=== PATIENT | female | born 1940 | race American Indian/Alaskan Native ===

== ENCOUNTER 2017-06-11 12:56 | Emergency (ER) | payer MEDICARE ==
--- NOTE | 2017-06-11 13:23 | Emergency Department Report ---
Stated Complaint: BOTH LEGS SWOLLEN AND RED Time Seen by Provider: 06/11/17 13:20 - HPI History of Present Illness: PT c/o ulcers to legs x 2 years. PT states they had healed up but two weeks ago they opened up. PT reports redness and swelling to ble. - ROS Review of Systems: - fever/ chills + ble draining clear fluid - Exam Physical Exam: obese female ble with gauze dressings. + swelling noted MSE screening note: Focused history and physical exam performed. Due to findings the following was ordered: labs ED Disposition for MSE Condition: Stable
[2017-06-11 14:14] LABS: Alanine Aminotransferase 8 units/L (7-56); Albumin 3.5 g/dL (3.9-5); Alkaline Phosphatase 126 units/L (35-129); Anion Gap 18 mmol/L; BUN/Creatinine Ratio 29; Blood Urea Nitrogen 26 mg/dL (7-17); Calcium 9.1 mg/dL (8.4-10.2); Carbon Dioxide 21 mmol/L (22-30); Chloride 110.5 mmol/L (98-107); Glucose 138 mg/dL (65-100); Potassium 4.2 mmol/L (3.6-5.0); Sodium 145 mmol/L (137-145); Total Protein 6.9 g/dL (6.3-8.2)
[2017-06-11 15:44] LABS: Hematocrit 30.9 % (30.3-42.9); Hemoglobin 10.2 gm/dl (10.1-14.3); Mean Corpuscular HGB Conc 33 % (30-34); Mean Corpuscular Hemoglobin 30 pg (28-32); Mean Corpuscular Volume 90 fl (79-97); Platelet Count 203 K/mm3 (140-440); Red Blood Count 3.45 M/mm3 (3.65-5.03); Red Cell Distribution Width 14.6 % (13.2-15.2); White Blood Count 5.9 K/mm3 (4.5-11.0)
[2017-06-11 17:10] LABS: Basophils % (Manual) 0 % (0.0-1.8); Blastocytes % (Manual) 0 %; RBC Morphology Normal
[2017-06-11 17:11] LABS: Diff Status Complete; Platelet Estimate Consistent w Auto
--- NOTE | 2017-06-11 17:39 | Emergency Department Report ---
ED General Adult HPI - General Chief complaint: Extremity Problem,Nontraumatic Stated complaint: BOTH LEGS SWOLLEN AND RED Time Seen by Provider: 06/11/17 13:20 Source: patient Mode of arrival: Ambulatory Limitations: No Limitations - History of Present Illness Initial comments: This is a 77-year-old female who was previously unknown to this provider. Past medical history includes arthritis, asthma, colon cancer, COPD, chronic venous stasis ulcers, lymphedema, chronic lower extremity wounds. The patient presents to the ER with a complaint of bilateral lower extremity pain which has been present for the past few days. No fevers or chills. No chest pain or shortness of breath. No redness, pus or streaking. Patient reports that she was recently in [place], is currently dressing the wounds on her own. She denies hematemesis and bright red blood per rectum. She thinks her legs are swollen at baseline, and the swelling is not new, worsening or different. The swelling is constant, and doesn't have any exacerbating or relieving factors. The pain is achy, and increases with palpation and range of motion. -: Gradual Location: left, right, lower extremity Quality: aching Consistency: constant Improves with: rest Worsens with: movement Associated Symptoms: denies other symptoms - Related Data Previous Rx's Medication Instructions Recorded Last Taken Type Bacitracin Zinc Oint [Antibiotic 28.4 gm TP TID #1 oint...g. 06/11/17 Unknown Rx Oint] Allergies Allergy/AdvReac Type Severity Reaction Status Date / Time aspirin Allergy Unknown Verified 06/11/17 13:25 ED Review of Systems ROS: Stated complaint: BOTH LEGS SWOLLEN AND RED Other details as noted in HPI Constitutional: denies: fever, malaise Eyes: denies: vision change Respiratory: denies: cough, shortness of breath Cardiovascular: denies: chest pain Gastrointestinal: denies: abdominal pain, melena, hematochezia Genitourinary: denies: dysuria Skin: lesions Neurological: weakness (chronic) ED Past Medical Hx - Past Medical History Previous Medical History?: Yes Hx Hypertension: Yes Hx of Cancer: Yes Hx Arthritis: Yes Hx Asthma: Yes Hx COPD: Yes Additional medical history: stasis ulcer to lower ext,chronic - Surgical History Past Surgical History?: Yes Additional Surgical History: colon cancer - Social History Smoking Status: Never Smoker Substance Use Type: None - Medications Home Medications: Home Medications Medication Instructions Recorded Confirmed Last Taken Type Bacitracin Zinc Oint [Antibiotic 28.4 gm TP TID #1 oint...g. 06/11/17 Unknown Rx Oint] ED Physical Exam - General Limitations: No Limitations General appearance: alert, in no apparent distress - Head Head exam: Present: atraumatic, normocephalic - Eye Eye exam: Present: normal appearance, EOMI. Absent: nystagmus - ENT ENT exam: Present: normal exam, normal orophraynx, mucous membranes moist, normal external ear exam - Neck Neck exam: Present: normal inspection, full ROM. Absent: tenderness, meningismus - Respiratory Respiratory exam: Present: normal lung sounds bilaterally. Absent: respiratory distress, wheezes, rales, chest wall tenderness - Cardiovascular Cardiovascular Exam: Present: regular rate, normal rhythm, normal heart sounds, other (2+ pulses are noted in the bilateral upper and lower extremities). Absent: bradycardia, tachycardia, irregular rhythm, systolic murmur, diastolic murmur, rubs, gallop - GI/Abdominal GI/Abdominal exam: Present: soft, normal bowel sounds. Absent: distended, tenderness, guarding, rebound, rigid, pulsatile mass - Extremities Exam Extremities exam: Present: full ROM, tenderness, normal capillary refill, pedal edema, other (there is 2+ pitting edema in the bilateral lower extremities. There is some hyperpigmentation to the bilateral lower extremities, but there is no redness, pus, crepitus, streaking or discharge. Chronic appearing lesions appear in the bilateral lower extremities, with appropriate granulation tissue. Some stasis dermatitis changes are noted.). Absent: calf tenderness - Back Exam Back exam: Present: normal inspection, full ROM. Absent: CVA tenderness (L), muscle spasm, paraspinal tenderness, vertebral tenderness - Neurological Exam Neurological exam: Present: alert, oriented X3, other (Extraocular movements intact. Tongue midline. No facial droop. Facial sensation intact to light touch in the V1, V2, V3 distribution bilaterally. 5 and 5 strength in 4 extremities.. Sensation is intact to light touch in 4 extremities.). Absent: motor sensory deficit - Psychiatric Psychiatric exam: Present: normal affect, normal mood - Skin Skin exam: Present: warm, rash ED Course Vital Signs 06/11/17 06/11/17 06/11/17 13:16 18:02 18:24 Temperature 98 F 98.4 F 98.4 F Pulse Rate 65 60 60 Respiratory 20 20 Rate Blood Pressure 147/59 Blood Pressure 191/71 187/74 [Left] O2 Sat by Pulse 98 96 99 Oximetry ED Medical Decision Making - Lab Data Result diagrams: 06/11/17 15:04 06/11/17 13:28 Vital Signs 06/11/17 13:16 Temperature 98 F Pulse Rate 65 Respiratory 20 Rate Blood Pressure 147/59 O2 Sat by Pulse 98 Oximetry Lab Results 06/11/17 06/11/17 Range/Units 13:28 15:04 WBC 5.9 (4.5-11.0) K/mm3 RBC 3.45 L (3.65-5.03) M/mm3 Hgb 10.2 (10.1-14.3) gm/dl Hct 30.9 (30.3-42.9) % MCV 90 (79-97) fl MCH 30 (28-32) pg MCHC 33 (30-34) % RDW 14.6 (13.2-15.2) % Plt Count 203 (140-440) K/mm3 Baso % (Auto) [place] Add Manual Diff Complete Total Counted 100 Seg Neuts % (Manual) 57.0 (40.0-70.0) % Band Neutrophils % 0 % Lymphocytes % (Manual) 29.0 (13.4-35.0) % Reactive Lymphs % (Man) 0 % Monocytes % (Manual) 13.0 H (0.0-7.3) % Eosinophils % (Manual) 1.0 (0.0-4.3) % Basophils % (Manual) 0 (0.0-1.8) % Metamyelocytes % 0 % Myelocytes % 0 % Promyelocytes % 0 % Blast Cells % 0 % Nucleated RBC % Not Reportable Seg Neutrophils # Man 3.4 (1.8-7.7) K/mm3 Band Neutrophils # 0.0 K/mm3 Lymphocytes # (Manual) 1.7 (1.2-5.4) K/mm3 Abs React Lymphs (Man) 0.0 K/mm3 Monocytes # (Manual) 0.8 (0.0-0.8) K/mm3 Eosinophils # (Manual) 0.1 (0.0-0.4) K/mm3 Basophils # (Manual) 0.0 (0.0-0.1) K/mm3 Metamyelocytes # 0.0 K/mm3 Myelocytes # 0.0 K/mm3 Promyelocytes # 0.0 K/mm3 Blast Cells # 0.0 K/mm3 WBC Morphology Not Reportable Hypersegmented Neuts Not Reportable Hyposegmented Neuts Not Reportable Hypogranular Neuts Not Reportable Smudge Cells Not Reportable Toxic Granulation Not Reportable Toxic Vacuolation Not Reportable Dohle Bodies Not Reportable Pelger-Huet Anomaly Not Reportable Darin Rods Not Reportable Platelet Estimate Consistent w auto Clumped Platelets Not Reportable Plt Clumps, EDTA Not Reportable Large Platelets Not Reportable Giant Platelets Not Reportable Platelet Satelliting Not Reportable Plt Morphology Comment Not Reportable RBC Morphology Normal Dimorphic RBCs Not Reportable Polychromasia Not Reportable Hypochromasia Not Reportable Poikilocytosis Not Reportable Anisocytosis Not Reportable Microcytosis Not Reportable Macrocytosis Not Reportable Spherocytes Not Reportable Pappenheimer Bodies Not Reportable Sickle Cells Not Reportable Target Cells Not Reportable Tear Drop Cells Not Reportable Ovalocytes Not Reportable Helmet Cells Not Reportable Garcia-[place] Bodies Not Reportable [place] Rings Not Reportable [place] Cells Not Reportable Bite Cells Not Reportable Crenated Cell Not Reportable Elliptocytes Not Reportable Acanthocytes (Spur) Not Reportable Rouleaux Not Reportable Hemoglobin C Crystals Not Reportable Schistocytes Not Reportable Malaria parasites Not Reportable Fritz Bodies Not Reportable Hem Pathologist Commnt No Sodium 145 (137-145) mmol/L Potassium 4.2 (3.6-5.0) mmol/L Chloride 110.5 H (98-107) mmol/L Carbon Dioxide 21 L (22-30) mmol/L Anion Gap 18 mmol/L BUN 26 H (7-17) mg/dL Creatinine 0.9 (0.7-1.2) mg/dL Estimated GFR > 60 ml/min BUN/Creatinine Ratio 29 % Glucose 138 H (65-100) mg/dL Calcium 9.1 (8.4-10.2) mg/dL Total Bilirubin 0.30 (0.1-1.2) mg/dL AST 13 (5-40) units/L ALT 8 (7-56) units/L Alkaline Phosphatase 126 (35-129) units/L Total Protein 6.9 (6.3-8.2) g/dL Albumin 3.5 L (3.9-5) g/dL Albumin/Globulin Ratio 1.0 % - Medical Decision Making Differential diagnosis: Chronic wounds, chronic lymphedema, venous stasis ulcers , mild stasis dermatitis, DVT Assessment and plan: 77-year-old female with chronic ulcerations, chronic stasis , no obvious redness, pus, streaking, no systemic signs of toxicity, clinically appears well. Lesions appear to be chronic, they do not appear to be superinfected. Patient does not require admission to the hospital or oral or systemic antibiotics at this time. She is to follow up with outpatient wound care, she is given instructions on how to provide wound care, and she is referred to the outpatient wound center. Highly doubt DVT, currently the vascular lab is not present, therefore this provider will order outpatient DVT study to be performed. Given that patient is so elderly, walks with a walker, high fall risk, not having chest pain, not having shortness of breath, will withhold systemic anticoagulation at this time , as risks outweigh benefits. Patient understands the need to follow up with outpatient wound center, outpatient primary care doctor. Return precautions are reviewed. Critical care attestation.: If time is entered above; I have spent that time in minutes in the direct care of this critically ill patient, excluding procedure time. ED Disposition Clinical Impression: Lower extremity ulceration Qualifiers: Laterality: unspecified laterality Non-pressure ulcer stage: limited to breakdown of skin Qualified Code(s): L97.901 - Non-pressure chronic ulcer of unspecified part of unspecified lower leg limited to breakdown of skin Disposition: DC-01 TO HOME OR SELFCARE Is pt being admited?: No Does the pt Need Aspirin: No Condition: Stable Instructions: Leg Edema (ED), Lymphedema (ED) Additional Instructions: Wash the lower extremity wounds with gentle soap and water at least once per day. Apply nonstick Telfa gauze to the wounds, after application of antibiotic ointment. Follow up with the wound care center within the next week. Continue outpatient medications, and follow up with her primary care doctor within the next month. Outpatient ultrasound has been ordered of the lower extremities, contact [phone], bring the requisition form with the patient, and follow- up for ultrasound within the next 48 hours. Return to the ER right away with new pain, worsened pain, migration of pain, fevers, chills, lethargy, irritability, projectile vomiting, change in mental status, inability to tolerate liquid feeds. Prescriptions: Bacitracin Zinc Oint [Antibiotic Oint] 28.4 gm TP TID #1 oint...g. Referrals: ELAN KWOK JR, MD [Primary Care Provider] - 3-5 Days [facility] [Outside] - 3-5 Days
[2017-06-11] MEDS ORDERED: TYLENOL PO ONE (18:00)
[2017-06-11] MEDS ORDERED: TYLENOL ONE (18:04)
[2017-06-11 18:25] VITALS: BP 187/74
== END 2017-06-11 18:25 | disposition home or self-care (01) ==
LOC: ED 12:56
DX: L97.901 Non-pressure chronic ulcer of unspecified part of unspecified lower leg limited to breakdown of skin (principal); I10 Essential (primary) hypertension; J45.909 Unspecified asthma, uncomplicated; J44.9 Chronic obstructive pulmonary disease, unspecified
CPT/HCPCS: 36415; 80053; 85007; 85025

== ENCOUNTER 2017-06-19 08:48 | Outpatient (CLI) | payer MEDICARE ==
--- NOTE | 2017-06-21 07:03 | Vascular Lab Report ---
LOWER EXTREMITY VENOUS DUPLEX: REASON FOR EXAM: Swelling of the lower extremities. COMMENTS ON THE RIGHT: All veins visualized are freely compressible without evidence of internal echogenicity. Flow is spontaneous and phasic throughout. COMMENTS ON THE LEFT: All veins visualized are freely compressible without evidence of internal echogenicity. Flow is spontaneous and phasic throughout. IMPRESSION: No evidence of acute or chronic deep venous thrombosis in either lower extremity.
== END 2017-06-19 08:49 | disposition home or self-care (01) ==
LOC: VAS 08:48
PROVIDERS: ATTEND Emergency Medicine
DX: M79.661 Pain in right lower leg (principal); M79.662 Pain in left lower leg; M79.89 Other specified soft tissue disorders
CPT/HCPCS: 93970

== ENCOUNTER 2017-07-22 09:31 | Outpatient (CLI) | payer MEDICARE ==
[2017-07-22] MEDS ORDERED: XYLOCAINE TOPICAL 2% TP ONE ×2 (10:02→10:20)
[2017-07-22] MEDS ORDERED: XYLOCAINE TOPICAL 4% TP ONE ×2 (10:02→10:20)
== END 2017-07-22 09:32 | disposition home or self-care (01) ==
LOC: WOUND 09:31
PROVIDERS: ATTEND Internal Medicine
DX: I87.2 Venous insufficiency (chronic) (peripheral) (principal); L97.821 Non-pressure chronic ulcer of other part of left lower leg limited to breakdown of skin; L97.811 Non-pressure chronic ulcer of other part of right lower leg limited to breakdown of skin; E66.01 Morbid (severe) obesity due to excess calories; M19.90 Unspecified osteoarthritis, unspecified site; D50.8 Other iron deficiency anemias; J45.909 Unspecified asthma, uncomplicated; I10 Essential (primary) hypertension; Z85.038 Personal history of other malignant neoplasm of large intestine
CPT/HCPCS: 11042; G0463

== ENCOUNTER 2017-07-29 09:53 | Outpatient (CLI) | payer MEDICARE ==
[2017-07-29] MEDS ORDERED: XYLOCAINE TOPICAL 4% TP ONE (11:05)
== END 2017-07-29 09:54 | disposition home or self-care (01) ==
LOC: WOUND 09:53
PROVIDERS: ATTEND Internal Medicine
DX: I87.313 Chronic venous hypertension (idiopathic) with ulcer of bilateral lower extremity (principal); L97.821 Non-pressure chronic ulcer of other part of left lower leg limited to breakdown of skin; L97.811 Non-pressure chronic ulcer of other part of right lower leg limited to breakdown of skin; D50.8 Other iron deficiency anemias; M19.90 Unspecified osteoarthritis, unspecified site; E66.01 Morbid (severe) obesity due to excess calories; J45.909 Unspecified asthma, uncomplicated; Z68.41 Body mass index [BMI] 40.0-44.9, adult; Z85.038 Personal history of other malignant neoplasm of large intestine
CPT/HCPCS: 29581

== ENCOUNTER 2017-08-05 09:39 | Outpatient (CLI) | payer MEDICARE ==
[2017-08-05] MEDS ORDERED: XYLOCAINE TOPICAL 4% TP ONE (10:00)
== END 2017-08-05 09:40 | disposition home or self-care (01) ==
LOC: WOUND 09:39
PROVIDERS: ATTEND Internal Medicine
DX: I87.2 Venous insufficiency (chronic) (peripheral) (principal); L97.811 Non-pressure chronic ulcer of other part of right lower leg limited to breakdown of skin; L97.821 Non-pressure chronic ulcer of other part of left lower leg limited to breakdown of skin; M19.90 Unspecified osteoarthritis, unspecified site; J45.909 Unspecified asthma, uncomplicated; E66.01 Morbid (severe) obesity due to excess calories; D50.8 Other iron deficiency anemias; Z68.41 Body mass index [BMI] 40.0-44.9, adult; Z85.038 Personal history of other malignant neoplasm of large intestine; Z98.49 Cataract extraction status, unspecified eye

== ENCOUNTER 2017-08-12 09:45 | Outpatient (CLI) | payer MEDICARE ==
[2017-08-12] MEDS ORDERED: XYLOCAINE TOPICAL 4% TP ONE ×3 (10:30→11:15)
== END 2017-08-12 09:46 | disposition home or self-care (01) ==
LOC: WOUND 09:45
PROVIDERS: ATTEND Surgery
DX: I87.2 Venous insufficiency (chronic) (peripheral) (principal); L97.821 Non-pressure chronic ulcer of other part of left lower leg limited to breakdown of skin; L97.811 Non-pressure chronic ulcer of other part of right lower leg limited to breakdown of skin; I10 Essential (primary) hypertension; M19.90 Unspecified osteoarthritis, unspecified site; Z85.038 Personal history of other malignant neoplasm of large intestine; J45.909 Unspecified asthma, uncomplicated; Z98.49 Cataract extraction status, unspecified eye; D50.8 Other iron deficiency anemias

== ENCOUNTER 2017-08-19 09:43 | Outpatient (CLI) | payer MEDICARE ==
[2017-08-19] MEDS ORDERED: XYLOCAINE TOPICAL 4% TP ONE ×2 (10:29)
== END 2017-08-19 09:44 | disposition home or self-care (01) ==
LOC: WOUND 09:43
PROVIDERS: ATTEND Internal Medicine
DX: I87.2 Venous insufficiency (chronic) (peripheral) (principal); L97.821 Non-pressure chronic ulcer of other part of left lower leg limited to breakdown of skin; L97.811 Non-pressure chronic ulcer of other part of right lower leg limited to breakdown of skin; D50.8 Other iron deficiency anemias; M19.90 Unspecified osteoarthritis, unspecified site; E66.01 Morbid (severe) obesity due to excess calories; I10 Essential (primary) hypertension; J45.909 Unspecified asthma, uncomplicated; Z85.038 Personal history of other malignant neoplasm of large intestine; Z98.49 Cataract extraction status, unspecified eye; Z68.41 Body mass index [BMI] 40.0-44.9, adult

== ENCOUNTER 2017-08-26 09:44 | Outpatient (CLI) | payer MEDICARE ==
[2017-08-26] MEDS ORDERED: XYLOCAINE TOPICAL 4% TP ONE (11:00)
== END 2017-08-26 09:45 | disposition home or self-care (01) ==
LOC: WOUND 09:44
PROVIDERS: ATTEND Internal Medicine
DX: I87.2 Venous insufficiency (chronic) (peripheral) (principal); L97.821 Non-pressure chronic ulcer of other part of left lower leg limited to breakdown of skin; L97.811 Non-pressure chronic ulcer of other part of right lower leg limited to breakdown of skin; E66.01 Morbid (severe) obesity due to excess calories; M19.90 Unspecified osteoarthritis, unspecified site; I10 Essential (primary) hypertension; J45.909 Unspecified asthma, uncomplicated; Z86.718 Personal history of other venous thrombosis and embolism; Z68.41 Body mass index [BMI] 40.0-44.9, adult; Z90.49 Acquired absence of other specified parts of digestive tract; Z98.49 Cataract extraction status, unspecified eye; Z85.038 Personal history of other malignant neoplasm of large intestine

== ENCOUNTER 2017-09-05 09:53 | Outpatient (CLI) | payer MEDICARE ==
[2017-09-05] MEDS ORDERED: XYLOCAINE TOPICAL 4% TP ONE (10:58)
[2017-09-06] MEDS ORDERED: NACL 0.9% 500 ML 0 ML ONE (13:12)
[2017-09-06] MEDS ORDERED: SUBLIMAZE ONE (13:12)
[2017-09-06] MEDS ORDERED: VERSED ONE (13:12)
[2017-09-06] MEDS ORDERED: HEPARIN 10,000 UNITS/10 ML ONE (13:13)
[2017-09-06] MEDS ORDERED: NACL 0.9% 1000 ML 1,000 ML ONE (13:13)
[2017-09-06] MEDS ORDERED: NITROGLYCERIN SYRINGE 3 ML ONE (13:14)
[2017-09-06] MEDS ORDERED: HEPARIN/NS 5000 UNIT/500ML(CATH LAB) 1,000 ML IR ONE (13:16)
[2017-09-06] MEDS ORDERED: XYLOCAINE 2% INFILTRATI ONE (13:16)
== END 2017-09-05 09:54 | disposition home or self-care (01) ==
LOC: WOUND 09:53
PROVIDERS: ATTEND Nurse Practitioner
DX: I87.2 Venous insufficiency (chronic) (peripheral) (principal); L97.821 Non-pressure chronic ulcer of other part of left lower leg limited to breakdown of skin; L97.811 Non-pressure chronic ulcer of other part of right lower leg limited to breakdown of skin; I10 Essential (primary) hypertension; M19.90 Unspecified osteoarthritis, unspecified site; E66.01 Morbid (severe) obesity due to excess calories; J45.909 Unspecified asthma, uncomplicated; Z68.41 Body mass index [BMI] 40.0-44.9, adult; Z86.718 Personal history of other venous thrombosis and embolism; Z90.49 Acquired absence of other specified parts of digestive tract; Z98.49 Cataract extraction status, unspecified eye; Z85.038 Personal history of other malignant neoplasm of large intestine
CPT/HCPCS: J1644; J2250; J3010; J7030; J7040

== ENCOUNTER 2017-09-16 09:53 | Outpatient (CLI) | payer MEDICARE ==
[2017-09-16] MEDS ORDERED: XYLOCAINE TOPICAL 2% 5ML ONE (10:25)
[2017-09-16] MEDS ORDERED: XYLOCAINE TOPICAL 2% 5ML TP ONE (11:32)
== END 2017-09-16 09:54 | disposition home or self-care (01) ==
LOC: WOUND 09:53
PROVIDERS: ATTEND Internal Medicine
DX: I87.2 Venous insufficiency (chronic) (peripheral) (principal); L97.821 Non-pressure chronic ulcer of other part of left lower leg limited to breakdown of skin; L97.811 Non-pressure chronic ulcer of other part of right lower leg limited to breakdown of skin; I10 Essential (primary) hypertension; M19.90 Unspecified osteoarthritis, unspecified site; E66.01 Morbid (severe) obesity due to excess calories; J45.909 Unspecified asthma, uncomplicated; Z68.41 Body mass index [BMI] 40.0-44.9, adult; Z85.038 Personal history of other malignant neoplasm of large intestine; Z90.49 Acquired absence of other specified parts of digestive tract; Z98.49 Cataract extraction status, unspecified eye

== ENCOUNTER 2017-09-23 09:26 | Outpatient (CLI) | payer MEDICARE ==
[2017-09-23] MEDS ORDERED: XYLOCAINE TOPICAL 4% TP ONE (09:55)
== END 2017-09-23 09:27 | disposition home or self-care (01) ==
LOC: WOUND 09:26
PROVIDERS: ATTEND Internal Medicine
DX: I87.2 Venous insufficiency (chronic) (peripheral) (principal); I87.013 Postthrombotic syndrome with ulcer of bilateral lower extremity; L97.811 Non-pressure chronic ulcer of other part of right lower leg limited to breakdown of skin; L97.821 Non-pressure chronic ulcer of other part of left lower leg limited to breakdown of skin; D50.8 Other iron deficiency anemias; M19.90 Unspecified osteoarthritis, unspecified site; E66.01 Morbid (severe) obesity due to excess calories; I10 Essential (primary) hypertension; J45.909 Unspecified asthma, uncomplicated; Z85.038 Personal history of other malignant neoplasm of large intestine

== ENCOUNTER 2017-09-30 09:59 | Outpatient (CLI) | payer MEDICARE ==
[2017-09-30] MEDS ORDERED: XYLOCAINE TOPICAL 4% TP ONE ×2 (10:06→10:31)
== END 2017-09-30 10:00 | disposition home or self-care (01) ==
LOC: WOUND 09:59
PROVIDERS: ATTEND Internal Medicine
DX: I87.2 Venous insufficiency (chronic) (peripheral) (principal); I87.013 Postthrombotic syndrome with ulcer of bilateral lower extremity; L97.811 Non-pressure chronic ulcer of other part of right lower leg limited to breakdown of skin; L97.821 Non-pressure chronic ulcer of other part of left lower leg limited to breakdown of skin; D50.8 Other iron deficiency anemias; M19.90 Unspecified osteoarthritis, unspecified site; E66.01 Morbid (severe) obesity due to excess calories; I10 Essential (primary) hypertension; J45.909 Unspecified asthma, uncomplicated; Z85.038 Personal history of other malignant neoplasm of large intestine; Z68.41 Body mass index [BMI] 40.0-44.9, adult

== ENCOUNTER 2017-10-07 09:48 | Outpatient (CLI) | payer MEDICARE ==
[2017-10-07] MEDS ORDERED: XYLOCAINE TOPICAL 4% TP ONE ×2 (10:08→10:17)
== END 2017-10-07 09:49 | disposition home or self-care (01) ==
LOC: WOUND 09:48
PROVIDERS: ATTEND Internal Medicine
DX: I87.2 Venous insufficiency (chronic) (peripheral) (principal); L97.811 Non-pressure chronic ulcer of other part of right lower leg limited to breakdown of skin; L97.821 Non-pressure chronic ulcer of other part of left lower leg limited to breakdown of skin; I87.013 Postthrombotic syndrome with ulcer of bilateral lower extremity; M19.90 Unspecified osteoarthritis, unspecified site; E66.01 Morbid (severe) obesity due to excess calories; I10 Essential (primary) hypertension; J45.909 Unspecified asthma, uncomplicated; Z85.038 Personal history of other malignant neoplasm of large intestine

== ENCOUNTER 2017-10-14 09:39 | Outpatient (CLI) | payer MEDICARE ==
[2017-10-14] MEDS ORDERED: XYLOCAINE TOPICAL 4% TP ONE (10:24)
== END 2017-10-14 09:40 | disposition home or self-care (01) ==
LOC: WOUND 09:39
PROVIDERS: ATTEND Internal Medicine
DX: I87.2 Venous insufficiency (chronic) (peripheral) (principal); L97.821 Non-pressure chronic ulcer of other part of left lower leg limited to breakdown of skin; L97.811 Non-pressure chronic ulcer of other part of right lower leg limited to breakdown of skin; I10 Essential (primary) hypertension; D50.8 Other iron deficiency anemias; M19.90 Unspecified osteoarthritis, unspecified site; I87.013 Postthrombotic syndrome with ulcer of bilateral lower extremity; E66.01 Morbid (severe) obesity due to excess calories; J45.909 Unspecified asthma, uncomplicated; Z85.41 Personal history of malignant neoplasm of cervix uteri; Z68.41 Body mass index [BMI] 40.0-44.9, adult

== ENCOUNTER 2017-10-21 09:38 | Outpatient (CLI) | payer MEDICARE ==
[2017-10-21] MEDS ORDERED: XYLOCAINE TOPICAL 4% TP ONE ×2 (09:44→09:52)
== END 2017-10-21 09:39 | disposition home or self-care (01) ==
LOC: WOUND 09:38
PROVIDERS: ATTEND Internal Medicine
DX: I87.2 Venous insufficiency (chronic) (peripheral) (principal); L97.811 Non-pressure chronic ulcer of other part of right lower leg limited to breakdown of skin; M19.90 Unspecified osteoarthritis, unspecified site; I10 Essential (primary) hypertension; D50.8 Other iron deficiency anemias; E66.01 Morbid (severe) obesity due to excess calories; Z68.41 Body mass index [BMI] 40.0-44.9, adult; Z85.038 Personal history of other malignant neoplasm of large intestine; Z98.49 Cataract extraction status, unspecified eye
CPT/HCPCS: 29580

== ENCOUNTER 2017-10-28 09:20 | Outpatient (CLI) | payer MEDICARE ==
[2017-10-28] MEDS ORDERED: XYLOCAINE TOPICAL 4% TP ONE (09:43)
== END 2017-10-28 09:21 | disposition home or self-care (01) ==
LOC: WOUND 09:20
PROVIDERS: ATTEND Internal Medicine
DX: I87.2 Venous insufficiency (chronic) (peripheral) (principal); L97.811 Non-pressure chronic ulcer of other part of right lower leg limited to breakdown of skin; E66.01 Morbid (severe) obesity due to excess calories; M19.90 Unspecified osteoarthritis, unspecified site; J45.909 Unspecified asthma, uncomplicated; D50.8 Other iron deficiency anemias; I10 Essential (primary) hypertension; Z85.038 Personal history of other malignant neoplasm of large intestine; Z68.41 Body mass index [BMI] 40.0-44.9, adult; Z98.49 Cataract extraction status, unspecified eye
CPT/HCPCS: 29580

== ENCOUNTER 2017-11-04 09:49 | Outpatient (CLI) | payer MEDICARE ==
[2017-11-04] MEDS ORDERED: XYLOCAINE TOPICAL 4% TP ONE ×2 (10:10→10:18)
== END 2017-11-04 09:50 | disposition home or self-care (01) ==
LOC: WOUND 09:49
PROVIDERS: ATTEND Internal Medicine
DX: L97.811 Non-pressure chronic ulcer of other part of right lower leg limited to breakdown of skin (principal); M19.90 Unspecified osteoarthritis, unspecified site; I10 Essential (primary) hypertension; D50.8 Other iron deficiency anemias; E66.01 Morbid (severe) obesity due to excess calories; Z68.41 Body mass index [BMI] 40.0-44.9, adult; Z85.038 Personal history of other malignant neoplasm of large intestine; Z98.49 Cataract extraction status, unspecified eye
CPT/HCPCS: 29580

== ENCOUNTER 2017-11-11 09:38 | Outpatient (CLI) | payer MEDICARE | END 2017-11-11 09:39 | disposition home or self-care (01) | LOC: WOUND 09:38 | PROVIDERS: ATTEND Internal Medicine | DX: L97.811 Non-pressure chronic ulcer of other part of right lower leg limited to breakdown of skin (principal); I87.2 Venous insufficiency (chronic) (peripheral); D50.8 Other iron deficiency anemias; E66.01 Morbid (severe) obesity due to excess calories; M19.90 Unspecified osteoarthritis, unspecified site; J45.909 Unspecified asthma, uncomplicated; I10 Essential (primary) hypertension; Z68.41 Body mass index [BMI] 40.0-44.9, adult; Z85.038 Personal history of other malignant neoplasm of large intestine; Z98.49 Cataract extraction status, unspecified eye | CPT/HCPCS: 99213; G0463 ==

== ENCOUNTER 2018-07-01 10:06 | Outpatient (CLI) | payer MEDICARE ==
--- NOTE | 2018-07-01 13:00 | XRay Report ---
XRAY LEFT SHOULDER THREE VIEWS: 07/01/18 10:06:00 CLINICAL: Shoulder pain. FINDINGS: No fracture or dislocation. Severe osteoarthritis of the glenohumeral joint with complete loss of the inferior joint space, large superior and inferior osteophytes and geodes of the glenoid and humeral head. Normal acromioclavicular joint. Normal soft tissues. No bursal calcifications. IMPRESSION: Severe osteoarthritis of the glenohumeral joint.
--- NOTE | 2018-07-01 16:47 | XRay Report ---
XRAY BILATERAL KNEE THREE VIEWS EACH: 07/01/18 10:06:00 CLINICAL: Bilateral knee pain. FINDINGS: Right: Severe osteoarthritis with loss of both medial and lateral joint spaces with large osteophytes. Slight medial subluxation of the femur on the tibia. Patellofemoral joint osteoarthritis. No fracture or dislocation. No joint effusion. Normal soft tissues. Left: Severe osteoarthritis with loss of the medial joint space and large medial osteophytes. Slight medial subluxation of the femur on the tibia. Slight widening of the lateral joint space. Minimal patellofemoral joint osteoarthritis. No fracture or dislocation. No joint effusion.Normal soft tissues. IMPRESSION: Bilateral osteoarthritis, worse on the right than the left.
== END 2018-07-01 10:07 | disposition home or self-care (01) ==
LOC: SPVIMAG 10:06
PROVIDERS: ATTEND Internal Medicine
DX: M19.012 Primary osteoarthritis, left shoulder (principal); M17.0 Bilateral primary osteoarthritis of knee; I10 Essential (primary) hypertension; J44.9 Chronic obstructive pulmonary disease, unspecified; Z90.710 Acquired absence of both cervix and uterus